=== PATIENT | male | born 1930 | race Caucasian/White ===

== ENCOUNTER 2018-06-19 12:06 | Inpatient (IN) | payer MEDICARE ==
[~2018-06-19] VITALS: Ht 182.9 cm; Wt 96.6 kg
[~2018-06-19 12:06] MED LIST: DILTIAZEM HCL60 MG PO; GABAPENTIN100 MG; METOPROLOL SUCC25 MG; Z.0.ASPIRIN CHEW81 M PO; Z.0.FLOMAX0.4 MG PO; Z.0.LEVOXYL75 MCG PO; Z.0.METOPROLOL TART2 PO; Z.0.PRAVACHOL40 MG PO
--- OUTSIDE RECORDS SUMMARY | 2018-06-19 12:10 | XMS REPORT ---
Author Author [facility] Address Unknown Phone Unavailable Care Team Providers Care Key Attendant Name Role Phone DESMOND MCGEE Unavailable Unavailable Problems This patient has no known problems. Allergies, Adverse Reactions, Alerts This patient has no known allergies or adverse reactions. Medications This patient has no known medications. Results Test Description Test Time Test Comments Text Results Atomic Results Result Comments CHEST 2 VIEWS [place] [address] Patient Name: BITA NARVAEZ MR #: [id number] : 1930 Age/Sex: 87/M Req #: [id number] Adm Physician: Ordered by: DESMOND MCGEE MD Report #: [id number] Location: RAD Room/Bed: Procedure: [id number] DX/CHEST 2 VIEWS Exam Date: 06/27/17 Exam Time: 1307 REPORT STATUS: Signed PROCEDURE: Frontal and lateral views of the chest. COMPARISON: [facility], , CHEST 2 VIEWS, 05/10/2017, 3:53. INDICATIONS: CHECK UP FINDINGS: Lines/tubes: None. Lungs: The lungs are well inflated and clear. There is no evidence of pneumonia or pulmonary edema. Pleura: There is no pleural effusion or pneumothorax. Heart and mediastinum: The heart and the mediastinum are normal. Bones: No acute bony abnormality. IMPRESSION: 1. No acute cardiopulmonary abnormalities. Preeti Lopez M.D. Dictated by: Preeti Lopez M.D. on 06/27/2017 at 13:49 Electronically approved by: Preeti Lopez M.D. on 06/27/2017 at 13:49 Dictated By: PREETI LOPEZ MD 1349 Transcribed By: DAISY on 06/27/17 1349 COPY TO: DESMOND MCGEE MD MRI BRAIN WO [place] [address] Patient Name: BITA NARVAEZ MR #: [id number] : 1930 Age/Sex: 87/M Req #: [id number] Adm Physician: DESMOND MCGEE MD Ordered by: RACHEL JUDGE MD Report #: [id number] Location: [facility] Room/Bed: [place] [address] Procedure: [id number] MRI/MRI BRAIN WO Exam Date: 05/10/17 Exam Time: 1215 REPORT STATUS: Signed Exam: Brain MRI without IV contrast History: Nausea, vomiting Comparison studies: Head CT 05/10/2017 Technique: Sagittal T2; axial DWI, FLAIR, T2*GRE, T1, Coronal T2 FLAIR. Intravenous contrast: None Findings: Scalp: Normal in signal. No masses. Bone marrow: Normal in signal intensity. Brain sulci: Mildly prominent. Ventricles: Mild compensatory dilatation. No hydrocephalus. Extra axial spaces: No mass, no fluid collection. Parenchyma: No mass, hemorrhage or acute ischemia. A few scattered and mildly confluent-periventricular T2 FLAIR hyperintense foci in the supratentorial white matter are most compatible with chronic small vessel ischemic changes. Suprasellar region: No abnormalities. Craniocervical junction: Patent foramen magnum. No Chiari malformation . Vessels: Normal flow-voids in the arteries. Mild increased T1/T2 FLAIR signal in the right transverse sinus may be flow related artifact within a nondominant sinus. IMPRESSION: 1. No acute intracranial abnormalities. 2. Mild generalized volume loss. 3. Mild supratentorial microvascular ischemic changes. Signed by: Dr. Jessica Flaherty M.D. on 05/11/2017 1:13 AM Dictated By: JESSICA FLAHERTY MD 2 Transcribed By: RAPHAEL on 05/11/17112 COPY TO: RACHEL JUDGE MD CHEST 2 VIEWS [place] [address] Patient Name: BITA NARVAEZ MR #: [id number] : 1930 Age/Sex: 87/M Req #: [id number] Adm Physician: Ordered by: RACHEL JUDGE MD Report #: [id number] Location: ER Room/Bed: Procedure: [id number] DX/CHEST 2 VIEWS Exam Date: Exam Time: REPORT STATUS: Signed EXAMINATION: CHEST 2 VIEWS INDICATION: Nausea, vomiting, dizziness COMPARISON: None FINDINGS: TUBES and LINES: None. LUNGS: Lungs are not well inflated. Lungs are clear. There is no evidence of pneumonia or pulmonary edema. PLEURA: No pleural effusion or pneumothorax. HEART AND MEDIASTINUM: Cardiac size is mildly enlarged. BONES AND SOFT TISSUES: No acute osseous lesion. Soft tissues are unremarkable. UPPER ABDOMEN: No free air under the diaphragm. IMPRESSION: No acute thoracic abnormality. Signed by: Dr. Govind Davis M.D. on 05/10/2017 4:25 AM Dictated By: GOVIND NEUMANN MD 4 Transcribed By: RAPHAEL on 05/10/17424 COPY TO: RACHEL JUDGE MD CT BRAIN WO [facility] [address] [place] [address] Patient Name: BITA NARVAEZ MR #: [id number] : 1930 Age/Sex: 87/M Req #: [id number] Adm Physician: Ordered by: RACHEL JUDGE MD Report #: [id number] Location: ER Room/Bed: Procedure: [id number] CT/CT BRAIN WO Exam Date: 05/10/17 Exam Time: 348 REPORT STATUS: Signed EXAMINATION: Head CT without contrast. HISTORY:Dizziness, nausea and vomiting. COMPARISON:None. TECHNIQUE: Multidetector axial images were obtained from the foramen magnum to the vertex without contrast. The images were reconstructed using brain and bone algorithms. Thin section brain images were reformatted into coronal and sagittal planes. Intravenous contrast: None IMAGE QUALITY: Acceptable. FINDINGS: Skull/scalp: No abnormality. Parenchyma: No abnormal density. No acute hemorrhage, mass or acute major vascular territorial infarct. Arteries: No density suggestive of thrombosis. Dural sinuses: No abnormal density suggestive of thrombosis. Ventricles: Mild compensated dilatation due to volume loss. Extra-axial spaces: No abnormal density. Brain volume: Ge neralized age-related cerebral volume loss. Craniocervical junction: No mass, Chiari malformation, or basilar invagination. Sella: No mass. Paranasal/mastoid sinuses: Imaged portions unremarkable. IMPRESSION: No acute intracranial abnormality. Generalized age-related cerebral volume loss. Signed by: Dr. Irma Barth M.D. on 05/10/2017 5:18 AM Dictated By: IRMA BARTH MD 7 Transcribed By: RAPHAEL on 05/10/17517 COPY TO: RACHEL JUDGE MD
[2018-06-19] MEDS ORDERED: SODIUM CHLORIDE 0.9% 1000ML 1,000 ML IV STA (12:19)
[2018-06-19] MEDS ORDERED: ACETAMINOPHEN 325 MG TAB PO ONE (12:30)
[2018-06-19 12:31] LABS: BASOPHILS % 0.2 % (0.0-1.0); EOSINOPHILS % 0.2 % (0.0-6.0); HEMATOCRIT 38.6 % (38.2-49.6); HEMOGLOBIN 13.2 g/dL (14.0-18.0); LYMPHOCYTES # (AUTO) 0.5 (1.0-3.2); LYMPHOCYTES % 3.7 % (18.0-39.1); MEAN CORPUSCULAR HEMOGLOBIN 31.6 pg (28-32); MEAN CORPUSCULAR HGB CONC 34.2 g/dL (31-35); MEAN CORPUSCULAR VOLUME 92.3 fL (81-99); MONOCYTES # (AUTO) 0.5 (0.2-0.8); MONOCYTES % 3.7 % (4.4-11.3); NEUTROPHILS % 91.5 % (38.7-80.0); PLATELET COUNT 249 x10e3/uL (140-360); RED BLOOD COUNT 4.18 x10e6/uL (4.3-5.7); RED CELL DISTRIBUTION WIDTH 12.9 % (11.7-14.4)
[2018-06-19 12:42] LABS: INR 0.95; PROTHROMBIN TIME 13.5 seconds (11.9-14.5)
[2018-06-19 12:43] LABS: PARTIAL THROMBOPLASTIN TIME 30.3 seconds (23.8-35.5)
--- NOTE | 2018-06-19 12:48 | Diagnostic Imaging Report ---
History:Confusion, unable to remember Comparison studies:None Technique: Axial images were obtained from the skull base to the vertex. Coronal and sagittal images reconstructed from the axial data. Intravenous contrast: None Dose modulation, iterative reconstruction, and/or weight based adjustment of the mA/kV was utilized to reduce the radiation dose to as low as reasonably achievable. Findings: Scalp/skull: No abnormalities. Extra-axial spaces: No masses. No fluid collections. Brain sulci: Mildly prominent. Ventricles: Mild compensatory dilatation. No hydrocephalus. Parenchyma: Few hypodensities in the supratentorial white matter are small vessel ischemic changes. No masses, hemorrhage, acute or chronic cortical vascular insults. Sellar/suprasellar region: No abnormalities. Craniocervical junction: Patent foramen magnum. No Chiari one malformation. Incidental findings: Atherosclerotic calcifications in the carotid siphons . Impression: No acute abnormalities. Chronic findings: 1. Mild generalized volume loss. 2. Mild supratentorial white matter small vessel ischemic changes. Signed by: DR Eriberto Burgos M.D. on 06/19/2018 12:45 PM
[2018-06-19 12:51] LABS: ALANINE AMINOTRANSFERASE 11 IU/L (0-55); ALBUMIN/GLOBULIN RATIO 1.4 (0.8-2.0); ALKALINE PHOSPHATASE 53 IU/L (40-150); ANION GAP 12.3 mmol/L (8-16); BLOOD UREA NITROGEN 16 mg/dL (7-26); BUN/CREATININE RATIO 13 (6-25); CALCIUM 9.3 mg/dL (8.4-10.2); CARBON DIOXIDE 26 mmol/L (22-29); CHLORIDE 98 mmol/L (98-107); CREATINE KINASE 44 IU/L (30-200); CREATININE, SERUM 1.19 mg/dL (0.72-1.25); EST GLOMERULAR FILTRATION RATE 58 ML/MIN (60-); GLUCOSE 143 mg/dL (74-118); POTASSIUM 4.3 mmol/L (3.5-5.1); SODIUM 132 mmol/L (136-145)
[2018-06-19 13:57] LABS: CLARITY,URINE CLEAR (CLEAR); COLOR,URINE YELLOW (YELLOW)
[2018-06-19 13:58] LABS: BILIRUBIN,URINE NEGATIVE (NEGATIVE); KETONES,URINE NEGATIVE (NEGATIVE); LEUKOCYTE ESTERASE ,URINE NEGATIVE (NEGATIVE); NITRITE,URINE NEGATIVE (NEGATIVE); PROTEIN,URINE DIPSTICK NEGATIVE (NEGATIVE); URINE UROBILINOGEN 0.2 mg/dL (0.2 - 1)
[2018-06-19 14:09] LABS: WBC,URINE (MAN) 0-5 /HPF (0-5)
--- NOTE | 2018-06-19 14:25 | Diagnostic Imaging Report ---
EXAMINATION: CHEST SINGLE (PORTABLE) INDICATION: ^FUO ^[id number] ^1355 ^Y COMPARISON: Chest radiograph 05/10/2017 FINDINGS: AP view TUBES and LINES: None. LUNGS: Lungs are well inflated. Worsening bilateral lower lobe reticular opacities, right greater than left. Mild central pulmonary vascular congestion. PLEURA: No pleural effusion or pneumothorax. HEART AND MEDIASTINUM: The cardiac silhouette is within normal limits. The pulmonary arteries are enlarged. BONES AND SOFT TISSUES: No acute osseous lesion. Soft tissues are unremarkable. UPPER ABDOMEN: No free air under the diaphragm. IMPRESSION: Worsening bibasilar, right greater than left, reticular opacities suggestive of multifocal pneumonia or aspiration. Signed by: Dr. Deneen Shankar M.D. on 06/19/2018 2:21 PM
[2018-06-19] MEDS ORDERED: PIPER-TAZ 3.375 GM 50 ML IV ONE ×2 (15:15→15:30)
[2018-06-19] MEDS ORDERED: ALBUTEROL SULF 0.083% NEB SOLN 3 ML NEB NEB SCH (15:15)
[2018-06-19] MEDS ORDERED: AZITHROMYCIN 500MG/SOD CHL 0.9% 250ML BAG IV SCH (15:15)
[2018-06-19] MEDS: SODIUM CHLORIDE 0.9% 1000ML 1,000 ML IV SCH (16:00)
[2018-06-19] MEDS ORDERED: MECLIZINE HCL12.5 MG (16:22)
[2018-06-19] MEDS ORDERED: ACETAMINOPHEN 325 MG TAB PO PRN (16:30)
[2018-06-19 16:58] VITALS: BP 109/58
[2018-06-19 17:12] VITALS: BP 109/58
[2018-06-19 17:21] VITALS: BP 109/58
[2018-06-19] MEDS ORDERED: GUAIFENESIN/CODEINE 10 ML CUP PO PRN (17:30)
[2018-06-19] MEDS ORDERED: IPRATROPIUM BROMIDE 0.02% 2.5 ML NEB NEB SCH (18:00)
[2018-06-19] MEDS: PIPER-TAZ 3.375 GM 50 ML IV SCH (18:00)
[2018-06-19] MEDS: ALBUTEROL SULF 0.083% NEB SOLN 3 ML NEB NEB SCH ×2 (19:00→20:38)
[2018-06-19] MEDS: IPRATROPIUM BROMIDE 0.02% 2.5 ML NEB NEB SCH ×2 (19:00→20:38)
[2018-06-19] MEDS ORDERED: GUAIFENESIN/CODEINE 10 ML CUP PO SCH (19:10)
[2018-06-19] MEDS: ALBUTEROL/IPRATROPIUM 3 ML NEB NEB SCH ×2 (19:25→23:20)
[2018-06-19] MEDS: GUAIFENESIN/CODEINE 10 ML CUP PO SCH (20:38)
[2018-06-19] MEDS: AZITHROMYCIN 500MG/SOD CHL 0.9% 250ML BAG IV SCH (20:39)
[2018-06-19 20:41] VITALS: BP 92/42
[2018-06-19] MEDS ORDERED: PRAVASTATIN 20 MG TAB PO SCH (21:00)
[2018-06-19 21:41] VITALS: BP 102/53
[2018-06-19] MEDS: GABAPENTIN 100 MG CAP PO SCH (21:41)
[2018-06-19] MEDS: MECLIZINE HCL 12.5 MG TAB PO SCH (21:48)
[2018-06-19 21:50] VITALS: BP 102/53
[2018-06-20] VITALS (8 sets, daily range): BP systolic 88–113; BP diastolic 51–68
[2018-06-20] MEDS: PIPER-TAZ 3.375 GM 50 ML IV SCH ×4 (00:19→16:45)
[2018-06-20] MEDS: GUAIFENESIN/CODEINE 10 ML CUP PO SCH ×7 (00:36→23:45)
[2018-06-20] MEDS: ALBUTEROL SULF 0.083% NEB SOLN 3 ML NEB NEB SCH ×6 (03:00→23:00)
[2018-06-20] MEDS: ALBUTEROL/IPRATROPIUM 3 ML NEB NEB SCH ×6 (03:15→23:24)
[2018-06-20] MEDS: IPRATROPIUM BROMIDE 0.02% 2.5 ML NEB NEB SCH ×3 (03:52→19:00)
[2018-06-20 04:59] LABS: BASOPHILS % 0.2 % (0.0-1.0); EOSINOPHILS % 0.1 % (0.0-6.0); HEMATOCRIT 31.7 % (38.2-49.6); HEMOGLOBIN 10.7 g/dL (14.0-18.0); LYMPHOCYTES # (AUTO) 1.7 (1.0-3.2); LYMPHOCYTES % 12.6 % (18.0-39.1); MEAN CORPUSCULAR HEMOGLOBIN 31.1 pg (28-32); MEAN CORPUSCULAR HGB CONC 33.8 g/dL (31-35); MEAN CORPUSCULAR VOLUME 92.2 fL (81-99); MONOCYTES # (AUTO) 0.8 (0.2-0.8); MONOCYTES % 6.3 % (4.4-11.3); NEUTROPHILS # (AUTO) 10.7 (2.1-6.9); NEUTROPHILS % 80.4 % (38.7-80.0); PLATELET COUNT 190 x10e3/uL (140-360); RED BLOOD COUNT 3.44 x10e6/uL (4.3-5.7); RED CELL DISTRIBUTION WIDTH 13.2 % (11.7-14.4)
[2018-06-20] MEDS: LEVOTHYROXINE SODIUM 50 MCG TAB PO SCH (05:20)
[2018-06-20 05:23] LABS: ANION GAP 15.7 mmol/L (8-16); CREATININE, SERUM 1.26 mg/dL (0.72-1.25); POTASSIUM 3.7 mmol/L (3.5-5.1)
--- NOTE | 2018-06-20 06:49 | Diagnostic Imaging Report ---
EXAMINATION: CHEST SINGLE (PORTABLE) INDICATION: Pneumonia. COMPARISON: 06/19/2018 FINDINGS: AP view TUBES and LINES: None. LUNGS: Lungs are well inflated. Persistent bibasilar opacities, slightly improved. PLEURA: No pleural effusion or pneumothorax. HEART AND MEDIASTINUM: The cardiomediastinal silhouette is unremarkable. BONES AND SOFT TISSUES: No acute osseous lesion. Soft tissues are unremarkable. UPPER ABDOMEN: No free air under the diaphragm. IMPRESSION: Persistent bibasilar opacities, slightly improved. Findings remain concerning for pneumonia in the appropriate clinical setting. Signed by: DR. Irvin Farah MD on 06/20/2018 6:45 AM
[2018-06-20] MEDS: MECLIZINE HCL 12.5 MG TAB PO SCH ×2 (08:36→16:45)
[2018-06-20] MEDS: ASPIRIN 81 MG CHEW TAB PO SCH (08:36)
[2018-06-20] MEDS: TAMSULOSIN HCL 0.4 MG CAP PO SCH (08:37)
[2018-06-20] MEDS: GABAPENTIN 100 MG CAP PO SCH ×2 (08:37→16:45)
[2018-06-20] MEDS ORDERED: GABAPENTIN 100 MG CAP PO SCH (09:00)
[2018-06-20] MEDS ORDERED: LEVOTHYROXINE SODIUM 75 MCG TAB PO SCH (09:00)
[2018-06-20] MEDS ORDERED: PRAVASTATIN SODIUM 40 MG PO SCH (09:00)
[2018-06-20] MEDS: SODIUM CHLORIDE 0.9% 1000ML 1,000 ML IV SCH (11:45)
[2018-06-20] MEDS: AZITHROMYCIN 500MG/SOD CHL 0.9% 250ML BAG IV SCH (22:05)
[2018-06-20] MEDS: SIMVASTATIN 20 MG TAB PO SCH (22:05)
[2018-06-21] VITALS (8 sets, daily range): BP systolic 108–119; BP diastolic 55–61
[2018-06-21] MEDS: GUAIFENESIN/CODEINE 10 ML CUP PO SCH ×6 (00:20→19:35)
[2018-06-21] MEDS: PIPER-TAZ 3.375 GM 50 ML IV SCH ×3 (00:27→11:08)
[2018-06-21] MEDS: IPRATROPIUM BROMIDE 0.02% 2.5 ML NEB NEB SCH ×4 (01:00→19:00)
[2018-06-21] MEDS: ALBUTEROL SULF 0.083% NEB SOLN 3 ML NEB NEB SCH ×6 (03:00→23:00)
[2018-06-21] MEDS: ALBUTEROL/IPRATROPIUM 3 ML NEB NEB SCH ×6 (03:20→23:58)
[2018-06-21] MEDS: LEVOTHYROXINE SODIUM 50 MCG TAB PO SCH (06:00)
[2018-06-21] MEDS: GABAPENTIN 100 MG CAP PO SCH ×2 (08:17→16:51)
[2018-06-21] MEDS: MECLIZINE HCL 12.5 MG TAB PO SCH ×2 (08:17→16:51)
[2018-06-21] MEDS: ASPIRIN 81 MG CHEW TAB PO SCH (08:17)
[2018-06-21] MEDS: TAMSULOSIN HCL 0.4 MG CAP PO SCH (08:17)
[2018-06-21] MEDS: SODIUM CHLORIDE 0.9% 1000ML 1,000 ML IV SCH (11:08)
[2018-06-21 16:04] LABS: BASOPHILS % 0.2 % (0.0-1.0); EOSINOPHILS # (AUTO) 0.2 (0.0-0.4); EOSINOPHILS % 2.3 % (0.0-6.0); HEMATOCRIT 32.7 % (38.2-49.6); HEMOGLOBIN 10.9 g/dL (14.0-18.0); LYMPHOCYTES # (AUTO) 1.7 (1.0-3.2); MEAN CORPUSCULAR HEMOGLOBIN 31.5 pg (28-32); MEAN CORPUSCULAR HGB CONC 33.3 g/dL (31-35); MEAN CORPUSCULAR VOLUME 94.5 fL (81-99); MONOCYTES # (AUTO) 0.8 (0.2-0.8); MONOCYTES % 9.2 % (4.4-11.3); NEUTROPHILS # (AUTO) 5.8 (2.1-6.9); PLATELET COUNT 213 x10e3/uL (140-360); RED BLOOD COUNT 3.46 x10e6/uL (4.3-5.7); RED CELL DISTRIBUTION WIDTH 13.6 % (11.7-14.4)
[2018-06-21 16:24] LABS: ALANINE AMINOTRANSFERASE 9 IU/L (0-55); ALBUMIN 2.9 g/dL (3.5-5.0); ALBUMIN/GLOBULIN RATIO 0.9 (0.8-2.0); ALKALINE PHOSPHATASE 34 IU/L (40-150); ANION GAP 11.9 mmol/L (8-16); BLOOD UREA NITROGEN 13 mg/dL (7-26); BUN/CREATININE RATIO 12 (6-25); CALCIUM 8.8 mg/dL (8.4-10.2); CARBON DIOXIDE 25 mmol/L (22-29); CHLORIDE 108 mmol/L (98-107); CREATININE, SERUM 1.12 mg/dL (0.72-1.25); EST GLOMERULAR FILTRATION RATE > 60 ML/MIN (60-); GLUCOSE 97 mg/dL (74-118); POTASSIUM 4.9 mmol/L (3.5-5.1); SODIUM 140 mmol/L (136-145)
[2018-06-21] MEDS: VANCOMYCIN 1GM/NS 250 ML 250 ML IV SCH (16:51)
[2018-06-21] MEDS: CEFEPIME HCL 1 GM VIAL IV SCH (16:51)
[2018-06-21] MEDS: SIMVASTATIN 20 MG TAB PO SCH (21:34)
[2018-06-22] VITALS (8 sets, daily range): BP systolic 113–138; BP diastolic 58–79
[2018-06-22] MEDS: ALBUTEROL/IPRATROPIUM 3 ML NEB NEB SCH ×6 (03:00→23:35)
[2018-06-22] MEDS: CEFEPIME HCL 1 GM VIAL IV SCH ×2 (03:45→16:27)
[2018-06-22] MEDS: GUAIFENESIN/CODEINE 10 ML CUP PO SCH ×6 (03:45→23:45)
[2018-06-22] MEDS: VANCOMYCIN 1GM/NS 250 ML 250 ML IV SCH ×2 (04:00→17:39)
[2018-06-22] MEDS: SODIUM CHLORIDE 0.9% 1000ML 1,000 ML IV SCH (04:24)
[2018-06-22] MEDS: LEVOTHYROXINE SODIUM 50 MCG TAB PO SCH (06:13)
[2018-06-22 06:46] LABS: BASOPHILS % 0.5 % (0.0-1.0); EOSINOPHILS # (AUTO) 0.3 (0.0-0.4); EOSINOPHILS % 4.7 % (0.0-6.0); HEMATOCRIT 32.2 % (38.2-49.6); HEMOGLOBIN 10.6 g/dL (14.0-18.0); LYMPHOCYTES % 16.6 % (18.0-39.1); MEAN CORPUSCULAR HEMOGLOBIN 30.7 pg (28-32); MEAN CORPUSCULAR HGB CONC 32.9 g/dL (31-35); MEAN CORPUSCULAR VOLUME 93.3 fL (81-99); MONOCYTES # (AUTO) 0.6 (0.2-0.8); MONOCYTES % 9.7 % (4.4-11.3); NEUTROPHILS # (AUTO) 4.2 (2.1-6.9); NEUTROPHILS % 67.7 % (38.7-80.0); PLATELET COUNT 211 x10e3/uL (140-360); RED BLOOD COUNT 3.45 x10e6/uL (4.3-5.7); RED CELL DISTRIBUTION WIDTH 13.6 % (11.7-14.4)
[2018-06-22] MEDS: ALBUTEROL SULF 0.083% NEB SOLN 3 ML NEB NEB SCH ×5 (07:00→23:35)
[2018-06-22] MEDS: IPRATROPIUM BROMIDE 0.02% 2.5 ML NEB NEB SCH ×4 (07:00→23:37)
[2018-06-22 07:03] LABS: ALBUMIN 2.8 g/dL (3.5-5.0); ALBUMIN/GLOBULIN RATIO 0.9 (0.8-2.0); ALKALINE PHOSPHATASE 33 IU/L (40-150); ANION GAP 13.1 mmol/L (8-16); BLOOD UREA NITROGEN 9 mg/dL (7-26); BUN/CREATININE RATIO 10 (6-25); CALCIUM 8.5 mg/dL (8.4-10.2); CARBON DIOXIDE 22 mmol/L (22-29); CHLORIDE 107 mmol/L (98-107); CREATININE, SERUM 0.94 mg/dL (0.72-1.25); EST GLOMERULAR FILTRATION RATE > 60 ML/MIN (60-); GLUCOSE 123 mg/dL (74-118); POTASSIUM 4.1 mmol/L (3.5-5.1); SODIUM 138 mmol/L (136-145)
[2018-06-22 07:06] LABS: ALANINE AMINOTRANSFERASE < 6 IU/L (0-55)
[2018-06-22] MEDS: MECLIZINE HCL 12.5 MG TAB PO SCH ×2 (09:30→16:27)
[2018-06-22] MEDS: ASPIRIN 81 MG CHEW TAB PO SCH (09:30)
[2018-06-22] MEDS: GABAPENTIN 100 MG CAP PO SCH ×2 (09:30→16:27)
[2018-06-22] MEDS: TAMSULOSIN HCL 0.4 MG CAP PO SCH (09:30)
[2018-06-22] MEDS: SIMVASTATIN 20 MG TAB PO SCH (21:44)
[2018-06-23] VITALS (8 sets, daily range): BP systolic 143–162; BP diastolic 74–93
[2018-06-23] MEDS: ALBUTEROL/IPRATROPIUM 3 ML NEB NEB SCH ×5 (03:27→19:55)
[2018-06-23] MEDS: ALBUTEROL SULF 0.083% NEB SOLN 3 ML NEB NEB SCH ×6 (03:27→23:00)
[2018-06-23] MEDS: CEFEPIME HCL 1 GM VIAL IV SCH ×2 (03:55→16:10)
[2018-06-23] MEDS: GUAIFENESIN/CODEINE 10 ML CUP PO SCH ×6 (03:55→20:51)
[2018-06-23] MEDS: VANCOMYCIN 1GM/NS 250 ML 250 ML IV SCH ×2 (03:59→16:10)
[2018-06-23 05:17] LABS: BASOPHILS % 0.4 % (0.0-1.0); EOSINOPHILS # (AUTO) 0.4 (0.0-0.4); EOSINOPHILS % 5.2 % (0.0-6.0); HEMOGLOBIN 10.4 g/dL (14.0-18.0); LYMPHOCYTES # (AUTO) 1.4 (1.0-3.2); LYMPHOCYTES % 20.2 % (18.0-39.1); MEAN CORPUSCULAR HEMOGLOBIN 31.2 pg (28-32); MEAN CORPUSCULAR HGB CONC 33.5 g/dL (31-35); MEAN CORPUSCULAR VOLUME 93.1 fL (81-99); MONOCYTES # (AUTO) 0.7 (0.2-0.8); MONOCYTES % 10.8 % (4.4-11.3); NEUTROPHILS # (AUTO) 4.3 (2.1-6.9); NEUTROPHILS % 62.8 % (38.7-80.0); PLATELET COUNT 232 x10e3/uL (140-360); RED BLOOD COUNT 3.33 x10e6/uL (4.3-5.7); RED CELL DISTRIBUTION WIDTH 13.3 % (11.7-14.4)
[2018-06-23 05:33] LABS: ANION GAP 10.9 mmol/L (8-16); BLOOD UREA NITROGEN 8 mg/dL (7-26); BUN/CREATININE RATIO 9 (6-25); CALCIUM 8.6 mg/dL (8.4-10.2); CARBON DIOXIDE 22 mmol/L (22-29); CHLORIDE 107 mmol/L (98-107); CREATININE, SERUM 0.87 mg/dL (0.72-1.25); EST GLOMERULAR FILTRATION RATE > 60 ML/MIN (60-); GLUCOSE 107 mg/dL (74-118); POTASSIUM 3.9 mmol/L (3.5-5.1); SODIUM 136 mmol/L (136-145)
[2018-06-23] MEDS: LEVOTHYROXINE SODIUM 50 MCG TAB PO SCH (05:36)
--- NOTE | 2018-06-23 06:26 | Diagnostic Imaging Report ---
EXAMINATION: CHEST SINGLE (PORTABLE) INDICATION: Follow-up pneumonia. COMPARISON: Chest x-ray 06/20/2018 FINDINGS: AP view TUBES and LINES: None. LUNGS/PLEURA: Lungs are well inflated. Increased bibasilar opacities. Trace bilateral pleural effusions. No pneumothorax. HEART AND MEDIASTINUM: Stable BONES AND SOFT TISSUES: No acute osseous lesion. Soft tissues are unremarkable. UPPER ABDOMEN: No free air under the diaphragm. IMPRESSION: Increased bibasilar opacities which remain concerning for pneumonia. Signed by: DR. Irvin Farah MD on 06/23/2018 6:22 AM
[2018-06-23] MEDS: IPRATROPIUM BROMIDE 0.02% 2.5 ML NEB NEB SCH ×3 (07:00→19:00)
[2018-06-23] MEDS: MECLIZINE HCL 12.5 MG TAB PO SCH ×2 (08:30→16:10)
[2018-06-23] MEDS: GABAPENTIN 100 MG CAP PO SCH ×2 (08:30→16:10)
[2018-06-23] MEDS: ASPIRIN 81 MG CHEW TAB PO SCH (08:30)
[2018-06-23] MEDS: TAMSULOSIN HCL 0.4 MG CAP PO SCH (08:30)
[2018-06-23] MEDS ORDERED: SODIUM CHLORIDE 0.9% 250ML 250 ML ONE (15:54)
[2018-06-23] MEDS: SIMVASTATIN 20 MG TAB PO SCH (20:51)
[2018-06-24] VITALS (7 sets, daily range): BP systolic 137–164; BP diastolic 67–85
[2018-06-24] MEDS: ALBUTEROL/IPRATROPIUM 3 ML NEB NEB SCH ×7 (00:35→22:20)
[2018-06-24] MEDS: IPRATROPIUM BROMIDE 0.02% 2.5 ML NEB NEB SCH ×5 (01:00→20:08)
[2018-06-24] MEDS: ALBUTEROL SULF 0.083% NEB SOLN 3 ML NEB NEB SCH ×6 (02:40→20:08)
[2018-06-24] MEDS: CEFEPIME HCL 1 GM VIAL IV SCH ×2 (03:50→15:18)
[2018-06-24] MEDS: GUAIFENESIN/CODEINE 10 ML CUP PO SCH ×6 (04:05→23:31)
[2018-06-24] MEDS: VANCOMYCIN 1GM/NS 250 ML 250 ML IV SCH ×2 (04:05→16:23)
[2018-06-24 04:57] LABS: BASOPHILS % 0.3 % (0.0-1.0); EOSINOPHILS # (AUTO) 0.4 (0.0-0.4); EOSINOPHILS % 6.3 % (0.0-6.0); HEMATOCRIT 31.6 % (38.2-49.6); HEMOGLOBIN 10.7 g/dL (14.0-18.0); LYMPHOCYTES # (AUTO) 1.4 (1.0-3.2); LYMPHOCYTES % 23.2 % (18.0-39.1); MEAN CORPUSCULAR HEMOGLOBIN 31.4 pg (28-32); MEAN CORPUSCULAR HGB CONC 33.9 g/dL (31-35); MEAN CORPUSCULAR VOLUME 92.7 fL (81-99); MONOCYTES # (AUTO) 0.7 (0.2-0.8); MONOCYTES % 10.9 % (4.4-11.3); NEUTROPHILS # (AUTO) 3.6 (2.1-6.9); NEUTROPHILS % 58.8 % (38.7-80.0); PLATELET COUNT 249 x10e3/uL (140-360); RED BLOOD COUNT 3.41 x10e6/uL (4.3-5.7); RED CELL DISTRIBUTION WIDTH 13.2 % (11.7-14.4)
[2018-06-24 05:18] LABS: BLOOD UREA NITROGEN 9 mg/dL (7-26); BUN/CREATININE RATIO 9 (6-25); CALCIUM 8.8 mg/dL (8.4-10.2); CARBON DIOXIDE 24 mmol/L (22-29); CHLORIDE 106 mmol/L (98-107); CREATININE, SERUM 0.98 mg/dL (0.72-1.25); EST GLOMERULAR FILTRATION RATE > 60 ML/MIN (60-); GLUCOSE 103 mg/dL (74-118); SODIUM 137 mmol/L (136-145)
[2018-06-24] MEDS: LEVOTHYROXINE SODIUM 50 MCG TAB PO SCH (05:40)
[2018-06-24] MEDS: MECLIZINE HCL 12.5 MG TAB PO SCH ×2 (09:18→16:28)
[2018-06-24] MEDS: ASPIRIN 81 MG CHEW TAB PO SCH (09:18)
[2018-06-24] MEDS: GABAPENTIN 100 MG CAP PO SCH ×2 (09:18→16:28)
[2018-06-24] MEDS: TAMSULOSIN HCL 0.4 MG CAP PO SCH (09:18)
--- NOTE | 2018-06-24 10:25 | Diagnostic Imaging Report ---
PROCEDURE: Frontal and lateral views of the chest. COMPARISON: [facility], DX, CHEST SINGLE (PORTABLE), 06/23/2018, 5:56. INDICATIONS: PNEUMONIA FINDINGS: Lines/tubes: None. Lungs: Lungs are well-inflated. Mild bibasilar atelectatic changes. Upper lungs are clear, without consolidation or edema. Pleura: Small bilateral pleural effusions. Heart and mediastinum: Cardiac silhouette is unremarkable. Pulmonary vasculature is normal. Bones: No acute bony abnormality. IMPRESSION: 1. small bilateral pleural effusions and associated bibasilar atelectatic changes. The left-sided pleural effusion is slightly smaller when compared to previous exam. Terry Lopez M.D. Dictated by: Terry Lopez M.D. on 06/24/2018 at 10:35 Electronically approved by: Terry Lopez M.D. on 06/24/2018 at 10:35
[2018-06-24] MEDS: SIMVASTATIN 20 MG TAB PO SCH (20:33)
[2018-06-25 00:30] VITALS: BP 116/56
[2018-06-25] MEDS: ALBUTEROL/IPRATROPIUM 3 ML NEB NEB SCH ×4 (01:50→15:18)
[2018-06-25] MEDS: ALBUTEROL SULF 0.083% NEB SOLN 3 ML NEB NEB SCH ×4 (02:10→15:00)
[2018-06-25] MEDS: GUAIFENESIN/CODEINE 10 ML CUP PO SCH ×4 (03:32→16:03)
[2018-06-25] MEDS: CEFEPIME HCL 1 GM VIAL IV SCH ×2 (03:32→15:45)
[2018-06-25] MEDS: VANCOMYCIN 1GM/NS 250 ML 250 ML IV SCH ×2 (04:18→16:03)
[2018-06-25] MEDS: LEVOTHYROXINE SODIUM 50 MCG TAB PO SCH (05:43)
[2018-06-25 05:51] VITALS: BP 132/70
[2018-06-25] MEDS: IPRATROPIUM BROMIDE 0.02% 2.5 ML NEB NEB SCH ×2 (07:00→13:00)
[2018-06-25 08:00] VITALS: BP 160/74
[2018-06-25] MEDS: ASPIRIN 81 MG CHEW TAB PO SCH (08:10)
[2018-06-25] MEDS: TAMSULOSIN HCL 0.4 MG CAP PO SCH (08:10)
[2018-06-25] MEDS: MECLIZINE HCL 12.5 MG TAB PO SCH ×2 (08:10→18:01)
[2018-06-25] MEDS: GABAPENTIN 100 MG CAP PO SCH ×2 (08:10→18:01)
[2018-06-25 09:15] VITALS: BP 160/74
[2018-06-25 12:00] VITALS: BP 141/71
[2018-06-25 16:00] VITALS: BP 148/77
[2018-06-25] MEDS ORDERED: AUGMENTIN 875-1 EACH PO (18:10)
== END 2018-06-25 18:10 | disposition home or self-care (01) | DRG 871 ==
LOC: ER 12:06 → ERHOLD 15:21 → MED/SURG2 16:24
DX: A41.9 Sepsis, unspecified organism (principal); J18.9 Pneumonia, unspecified organism; N17.9 Acute kidney failure, unspecified; R65.20 Severe sepsis without septic shock; I25.10 Atherosclerotic heart disease of native coronary artery without angina pectoris; M19.90 Unspecified osteoarthritis, unspecified site; B96.89 Other specified bacterial agents as the cause of diseases classified elsewhere
CPT/HCPCS: 36415; 70450; 71045; 71046; 80048; 80053; 80202; 81001; 82550; 82553; 84484; 85025; 85610; 85730; 87040; 87070; 87086; 87205; 87400; 93005; 94640; 99284; J0456; J0692; J2543; J3370; J7030; J7050

== ENCOUNTER → 2020-09-29 | Outpatient (CLI) | payer MEDICARE ==
[~2020-09-29] MED LIST changes: +AUGMENTIN 875-1 EACH PO; +MECLIZINE HCL12.5 MG
[2020-09-29 13:16] LABS: BASOPHILS % 0.5 % (0.0-1.0); EOSINOPHILS # (AUTO) 0.1 (0.0-0.4); EOSINOPHILS % 1.6 % (0.0-6.0); HEMOGLOBIN 13.5 g/dL (14.0-18.0); LYMPHOCYTES % 24.7 % (18.0-39.1); MEAN CORPUSCULAR HEMOGLOBIN 30.5 pg (28-32); MEAN CORPUSCULAR HGB CONC 32.9 g/dL (31-35); MEAN CORPUSCULAR VOLUME 92.8 fL (81-99); MONOCYTES # (AUTO) 0.7 (0.2-0.8); MONOCYTES % 8.4 % (4.4-11.3); NEUTROPHILS # (AUTO) 5.1 (2.1-6.9); NEUTROPHILS % 64.4 % (38.7-80.0); PLATELET COUNT 311 x10e3/uL (140-360); RED BLOOD COUNT 4.42 x10e6/uL (4.3-5.7); RED CELL DISTRIBUTION WIDTH 13.1 % (11.7-14.4)
[2020-09-29 13:32] LABS: CLARITY,URINE CLEAR (CLEAR); COLOR,URINE YELLOW (YELLOW); KETONES,URINE NEGATIVE (NEGATIVE); LEUKOCYTE ESTERASE ,URINE SMALL (NEGATIVE); NITRITE,URINE NEGATIVE (NEGATIVE); PROTEIN,URINE DIPSTICK NEGATIVE (NEGATIVE); URINE UROBILINOGEN 0.2 mg/dL (0.2 - 1)
[2020-09-29 13:36] LABS: ALANINE AMINOTRANSFERASE 13 IU/L (0-55); ALBUMIN 4.1 g/dL (3.5-5.0); ALBUMIN/GLOBULIN RATIO 1.2 (0.8-2.0); ALKALINE PHOSPHATASE 69 IU/L (40-150); ANION GAP 11.5 mmol/L (8-16); BLOOD UREA NITROGEN 17 mg/dL (7-26); BUN/CREATININE RATIO 15 (6-25); CALCIUM 9.1 mg/dL (8.4-10.2); CARBON DIOXIDE 26 mmol/L (22-29); CHLORIDE 102 mmol/L (98-107); CHOL/HDL RATIO 3.9 (3.9-4.7); CHOLESTEROL 158 MD/DL (0-199); EST GLOMERULAR FILTRATION RATE > 60 ML/MIN (60-); GLUCOSE 106 mg/dL (74-118); HDL CHOLESTEROL 41 MG/DL (40-60); LDL CHOLESTEROL 99 MG/DL (60-130); POTASSIUM 4.5 mmol/L (3.5-5.1); SODIUM 135 mmol/L (136-145); TRIGLYCERIDES 90 MG/DL (0-149)
== END ==
LOC: LAB 12:34
DX: Z00.00 Encounter for general adult medical examination without abnormal findings (principal); I10 Essential (primary) hypertension; E03.9 Hypothyroidism, unspecified; E78.1 Pure hyperglyceridemia
CPT/HCPCS: 36415; 80053; 80061; 81003; 84439; 84443; 84480; 85025

== ENCOUNTER 2021-02-27 09:42 | Emergency (ER) | payer MEDICARE ==
[~2021-02-27] VITALS: Ht 175.3 cm; Wt 99.8 kg
[2021-02-27] MEDS ORDERED: DECADRON4 M1 PO (11:40)
== END 2021-02-27 12:03 | disposition home or self-care (01) ==
LOC: ER 09:56
DX: U07.1 COVID-19 (principal); R05 Cough; Z85.828 Personal history of other malignant neoplasm of skin
CPT/HCPCS: 71045; 99283